=== PATIENT | female | born 1990 | race Hispanic/Latino ===

== ENCOUNTER 2016-09-28 05:35 | Emergency (ER) | payer SELFPAY ==
--- NOTE | 2016-09-28 06:07 | PDOC ---
Upper Respiratory HPI - General Chief Complaint: Headache Stated Complaint: TREVIZO/FEVER/CHILLS Date Seen by Provider: 09/28/16 Time Seen by Provider: 06:01 Source: POSITIVE: Patient, Spouse Exam Limitations: POSITIVE: Language barrier Nurse's Notes Reviewed & Considered: Yes - History of Present Illness Initial Comments: This is a 26-year-old female who presents to the emergency department with a history of increasing congestion and runny nose and cough for the last 2 days. She has some mild shortness of breath. Mild chest pain with coughing. Cough is productive. She has also had fevers, chills, and body aches. No family members are sick. 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 - Patient Home Medications Home Medications: Home Medications Acetaminophen [Tylenol] 650 mg PO Q6H PRN PRN 04/04/15 - Patient Allergies Allergies/Adverse Reactions: Allergies Allergy/AdvReac Type Severity Reaction Status Date / Time No Known Allergies Allergy Verified 09/28/16 05:39 Past Medical History - heen HEENT History: Denies History Cardiovascular History: Denies History Respiratory History: Denies History Gastrointestinal History: Denies History Genitourinary History: Denies History Endocrine History: Gestational Diabetes Musculoskeletal History: Denies History Prosthesis or Implant: No Neurological History: Denies History Blood Disorders: Denies History Psychiatric History: Denies History History of Sexually Transmitted Diseases: No Female Reproductive History: Denies History Obstetrical History: Delivery Cancer History: Denies History In Past Year Been Physically Harmed or Verbally Threatened: No History of MDRO: No History of Other Communicable Diseases: No Tobacco Use: Never Smoker Alcohol Use: None Substance Use Type: None Previous Surgical History: Yes Type / Date of Surgery: 09/2011 C-SEC, 03/2015 C-SEC Anesthesia Reactions: No Malignant Hyperthermia: No Significant Family History: Diabetes Past Medical History Reviewed: Reviewed - No Changes ROS - Limitations ROS Limitations: Language Barrier Constitution: REPORTS: Chills, Fever Cardiovascular: REPORTS: Chest Pain Respiratory: REPORTS: Cough Productive, Shortness Of Breath Neurological: REPORTS: Headache, Dizziness Gastrointestinal: REPORTS: Nausea, Vomitting Musculoskeletal: REPORTS: Muscle Aches Genitourinary: REPORTS: Denies Symptoms Eyes: REPORTS: Eye Pain, Red Eyes ENT: REPORTS: Congestion, Nasal Drainage, Sore Throat Skin: DENIES: Rash Lympathic: REPORTS: Denies Lympathic Symptoms Psychiatric: POSITIVE: Denies Psych Symptoms Upper Respiratory/Fever Exam - General Appearance General Appearance: REPORTS: Alert, Moderate Distress - HEENT HEENT: POSITIVE: Ears Inspection Nml, PERRL, EOMI, Clear Nasal Drainage - Neck Neck: REPORTS: Normal Inspection - Respiratory Respiratory: REPORTS: No Respiratory Distress, Breath Sounds Normal. DENIES: Respiratory Distress, Wheezes, Rales, Rhonchi - Cardiovascular Cardiovascular: REPORTS: Heart Sounds Normal, No Murmur, No Gallop, Tachycardia - Skin Skin: REPORTS: Intact, Normal For Race, Warm, Dry - Neurological / Psychological Neurological: POSITIVE: Affect Apporpriate, Motor Normal Upper Resp/Fever Progress - Results Reviewed by me Xrays/CTs/US Reviewed by me: Yes Discussed with Radiologist: No Radiology Findings: Normal Lab Results Reviewed: Yes Lab Results:: Laboratory Results 09/28/16 Range/Units 06:05 WBC 8.35 (4.8-10.8) 10^3/uL RBC 5.18 (4.20-5.40) 10^6/uL Hgb 15.1 (12.0-16.0) g/dL Hct 44.3 (37.0-47.0) % MCV 85.5 (81-99) FL MCH 29.2 (27-31) PG MCHC 34.1 (33-37) g/dL RDW Std Deviation 41.5 (39-50) fL RDW Coeff of Yvette 13.4 (11.5-14.5) % Plt Count 170 (140-350) 10*3/uL MPV 12.3 H (7.4-12.2) FL Immature Gran % (Auto) 0.1 (0-5) % Neut % (Auto) 84.1 H (50-80) % Lymph % (Auto) 7.2 L (10-50) % [place] % (Auto) 8.3 (5-15) % Eos % (Auto) 0.1 (0-8) % Baso % (Auto) 0.2 (0-1) % Immature Gran # (Auto) 0.01 10*3/UL Neut # (Auto) 7.02 10*3/UL Lymph # (Auto) 0.60 10*3/uL [place] # (Auto) 0.69 (0.3-0.8) 10*3/UL Eos # (Auto) 0.01 10*3/UL Baso # (Auto) 0.02 10*3/UL WBC Morphology Comment Normal morphology (NORM) Plt Morphology Comment Normal morphology (NORM) RBC Morph Comment Normal morphology (NORM) Sodium 141 (135-145) meq/L Potassium 4.1 (3.8-5.2) meq/L Chloride 104 (98-112) meq/L Carbon Dioxide 23 (23-33) meq/L Anion Gap 14 (5-20) BUN 6 L (7-22) mg/dL Creatinine 0.8 (0.50-1.20) mg/dL Estimated GFR > 60 (>60 ml/min/1.73m(2)) BUN/Creatinine Ratio 7.50 (6-20) Glucose 112 H (78-110) mg/dL Calculated Osmolality 290.0 (267-292) mOsm/kg Calcium 9.5 (8.7-10.7) mg/dL - Patient's Progress Pain Medication Addressed: POSITIVE: Yes Re-Examine Time: 07:15 (improved) Status: POSITIVE: Improved MDM / ED Course: Emergency room course: After initial evaluation, an IV was started and labs were drawn. She received a liter of normal saline, Tessalon Perles, ibuprofen, and Zofran. Once the labs results returned and were reviewed, they're discussed with the patient and her . Patient states that the cough is improved Tessalon Perles. Results show that she does have influenza A. On reexamination, her pulse improved down to 104 and her fever had improved to 99.7. Since she is right at the limits of the window to start Tamiflu, I will elect not to start her on the medication due to the small chance she will receive any benefit. She will be given a prescription for Tessalon Perles and will suggest Mucinex D for congestion. Air Movement: Good Antibiotics Given: No Nebulizer Treatment Given:: No Patient Care Time - Estimated PCT Patient Care Time (In Minutes): 20 Vital Signs - Recent Vital Signs Vital Signs: Vital Signs (Last 8 hours) Temp Pulse Resp BP Pulse Ox 09/28/16 06:21 101.2 F H 09/28/16 05:45 101.2 F H 128 H 20 147/78 93 Discharge Clinical Impression: Influenza A Discharge Disposition: Discharged to Home Condition: Good Patient Instructions Given at Discharge: Influenza (ED)
[2016-09-28] MEDS ORDERED: NORMAL SALINE 10 ML SYRINGE FLUSH IVP PRN (06:08)
[2016-09-28] MEDS ORDERED: Sodium Chloride 0.9% 1,000 ML PRIMARY IV ONE (06:08)
[2016-09-28] MEDS ORDERED: BENZONATATE 100 MG CAPSULE PO ONE (06:09)
[2016-09-28] MEDS ORDERED: IBUPROFEN 600 MG TABLET PO ONE (06:10)
[2016-09-28] MEDS ORDERED: ONDANSETRON 4 MG/2 ML VIAL IVP ONE (06:10)
[2016-09-28 06:20] LABS: BASOPHILS # (AUTO) 0.02 10*3/UL; BASOPHILS % (AUTO) 0.2 % (0-1); EOSINOPHILS % (AUTO) 0.1 % (0-8); HEMATOCRIT 44.3 % (37.0-47.0); HEMOGLOBIN 15.1 g/dL (12.0-16.0); IMM GRAN % (AUTO) 0.1 % (0-5); IMM GRAN# (AUTO) 0.01 10*3/UL; LYMPHOCYTES % (AUTO) 7.2 % (10-50); MEAN CORPUSCULAR HEMOGLOBIN 29.2 PG (27-31); MEAN CORPUSCULAR HGB CONC 34.1 g/dL (33-37); MEAN PLATELET VOLUME 12.3 FL (7.4-12.2); MONOCYTES # (AUTO) 0.69 10*3/UL (0.3-0.8); MONOCYTES % (AUTO) 8.3 % (5-15); NEUTROPHILS # (AUTO) 7.02 10*3/UL; NEUTROPHILS % (AUTO) 84.1 % (50-80); RDW COEFFICIENT OF VARIATION 13.4 % (11.5-14.5); RED BLOOD COUNT 5.18 10^6/uL (4.20-5.40); WHITE BLOOD COUNT 8.35 10^3/uL (4.8-10.8)
[2016-09-28 06:33] LABS: BLOOD UREA NITROGEN 6 mg/dL (7-22); CALCIUM 9.5 mg/dL (8.7-10.7); CHLORIDE 104 meq/L (98-112); CREATININE 0.8 mg/dL (0.50-1.20); EST GLOMERULAR FILTRATION > 60 (>60 ml/min/1.73m(2)); GLUCOSE 112 mg/dL (78-110); POTASSIUM 4.1 meq/L (3.8-5.2); SODIUM 141 meq/L (135-145)
[2016-09-28 06:37] LABS: PLATELET MORPHOLOGY COMMENT NORMAL MORPHOLOGY (NORM)
[2016-09-28 07:22] VITALS: RESP 16; TEMP 99.7
--- NOTE | 2016-09-28 08:26 | DI ---
PA /LATERAL CHEST X-RAY, 09/28/2016 6:08 AM : Clinical History: Cough. Fever. Previous Exam: None at this facility. There is no acute soft tissue or bony abnormality. Heart size is normal. There is an increased densit y behind the heart as well as in the right upper lobe and this would be consistent with either a very pneumonia or atelectasis. The remaining lung sargent are clear. Mediastinal structures are normal. Th ere are no pulmonary nodules. Reading: Increased densities in the right upper lobe in the left lower lobe. These either represent very early pneumonia or atelectasis.
== END 2016-09-28 07:40 | disposition home or self-care (01) ==
LOC: ER 05:35
DX: J09.X2 Influenza due to identified novel influenza A virus with other respiratory manifestations (principal); R06.02 Shortness of breath; R11.2 Nausea with vomiting, unspecified; M79.1 Myalgia; J02.9 Acute pharyngitis, unspecified
CPT/HCPCS: 36415; 71020; 80048; 85025; 87040; 87804; 96361; 96374; 99283; J2405; J7030